=== PATIENT | female | born 1985 | race American Indian/Alaskan Native ===

== ENCOUNTER 2018-03-24 13:05 | Inpatient (IN) | payer BC ==
[2018-03-24] MEDS ORDERED: Lactated Ringer's 1,000 ML IV SCH (13:45)
--- NOTE | 2018-03-24 14:03 | OBHP ---
Datetime: 03/24/2018 14:02 Admit Comment, IP Provider: 32 yo at 40+5 wks in labor. Pt admitted to L_D. GBS negative. FHT reassuring. H_P dictated, "[id number]" (ES) Datetime: 03/24/2018 13:56 IP Adm Impression: Term, intrauterine IP Admit Plan: Admit to unit; Initiate labor protocol Extremities - PN: Normal Abdomen - PN: Normal Lungs - PN: Normal Heart - PN: Normal Neurologic - PN: Normal General - PN: Normal FHR - Baseline A Provider: 130's Membranes, Provider: Naida EGA AdmitDate IP: 40.5 Vital Signs Provider: Reviewed IP Chief Complaint: Uterine contractions NICHD Variability Prov Fetus A: Moderate 6-25bpm NICHD Accel Fetus A IP Provider: [id number] FHR Category Provider Fetus A: Category I NICHD Decel Fetus A IP Provider: None Dilatation, Provider: 5 Effacement, Provider: 100 Station, Provider: -2 Genitourinary Exam: Normal
--- NOTE | 2018-03-24 14:07 | OBADHP ---
Datetime: 03/24/2018 14:02 Admit Comment, IP Provider: 32 yo at 40+5 wks in labor. Pt admitted to L_D. GBS negative. FHT reassuring. H_P dictated, "[id number]" (ES) Extremities - PN: Normal Abdomen - PN: Normal Lungs - PN: Normal Heart - PN: Normal Neurologic - PN: Normal General - PN: Normal FHR - Baseline A Provider: 130's Membranes, Provider: Bulging Vital Signs Provider: Reviewed IP Chief Complaint: Uterine contractions NICHD Variability Prov Fetus A: Moderate 6-25bpm NICHD Accel Fetus A IP Provider: [id number] NICHD Decel Fetus A IP Provider: None Dilatation, Provider: 5 Effacement, Provider: 100 Station, Provider: -2 Genitourinary Exam: Normal IP Adm Impression: Term, intrauterine IP Admit Plan: Admit to unit; Initiate labor protocol Datetime: 03/24/2018 13:56 FHR Category Provider Fetus A: Category I
[2018-03-24 14:15] VITALS: BMI 27.3
[2018-03-24 14:51] LABS: BASO % 0.2 % (0.0-2.0); EOS % 0.6 % (0.0-4.0); HEMOGLOBIN 12.1 g/dL (12.0-16.0); LYMPH # 1.2 K/uL (1.0-4.3); LYMPH % 16.8 % (20.0-40.0); MEAN CELL VOLUME 84.2 fl (81.0-99.0); MEAN CORPUSCULAR HEMOGLOBIN 29.3 pg (27.0-31.0); MEAN CORPUSCULAR HGB CONC 34.8 g/dL (33.0-37.0); MEAN PLATELET VOLUME 8.3 fl (7.2-11.7); MONO # 0.6 K/uL (0.0-0.8); MONO % 8.6 % (0.0-10.0); NEUT # 5.2 K/uL (1.8-7.0); NEUT % 73.8 % (50.0-75.0); NRBC % 0.1 % (0.0-0.0); RBC 4.12 Mil/uL (3.80-5.20); RED CELL DISTRIBUTION WIDTH 13.3 % (11.5-14.5)
[2018-03-24] MEDS: Oxytocin 30 units/LR 500ML 30 U/500 ML BAG IV SCH ×3 (15:45→19:19)
--- NOTE | 2018-03-24 15:48 | HP ---
HISTORY OF PRESENT ILLNESS: This is a 32-year-old G4, P1-0-2-1 at 40 weeks and 5 days with an EDC of 03/19/2018 by 8 weeks' ultrasound who presents with strong contraction that started at 1:00 a.m. Denies leaking of fluid, or vaginal bleeding. She reports that she passed her mucus plug and reports positive movement. The patient received her care with [facility] with Dr. Henriquez. This is complicated by the fact that she has history of possible genital herpes, operated in the past. IMMUNIZATIONS: The patient has received her Tdap vaccine on 01/09/2018. PAST MEDICAL HISTORY: Healthy. PAST SURGICAL HISTORY: None. MEDICATIONS: vitamins. ALLERGIES: NO KNOW DRUG ALLERGIES. GYNECOLOGIC HISTORY: Menarche at 12 and history of regular periods. She does report a history of "possible herpes outbreak" and denies abnormal Pap. SOCIAL HISTORY: The patient denies tobacco, alcohol or illicit drug use. FAMILY HISTORY: The patient reports that her mom has diabetes and hypertension and she has a maternal uncle with lung cancer who is a very heavy smoker. OBSTETRIC HISTORY: In 2001 and 2006, she underwent a D and C for termination of . In 07/2015, she underwent a vaginal delivery of full term female infant weighing 6 pounds 4 ounces. LABORATORY DATA: On 01/24/2015, SMN copy number 2, reduced carrier risk. On 08/07/2017, HIV was nonreactive and varicella zoster virus was positive. On 08/07/2017, blood type is B positive and antibody screen negative. Hemoglobin electrophoresis was within normal limits. Her urine culture was negative. On 08/07/2017, her RPR was nonreactive. Rubella positive and hepatitis B surface antigen negative. On 09/04/2017, Panorama was low-risk female fetus. On 09/04/2017, her Pap was negative. HPV negative. Gonorrhea and Chlamydia negative. On 10/02/2017, her maternal serum AFP was negative. On 01/09/2018, her one-hour Glucola was 109. RPR was nonreactive. Her HIV was nonreactive. On 02/19/2018, her hemoglobin was 11.6. On 02/19/2018, her group B strep was negative. PHYSICAL EXAMINATION: VITAL SIGNS: Afebrile. Vital signs stable. GENERAL: The patient appears uncomfortable during contractions. HEART: Regular rate and rhythm. CHEST AND LUNGS: Clear to auscultation bilaterally. ABDOMEN: Soft, nontender, and gravid. EXTREMITIES: Nontender. VAGINAL: A 5 cm dilated with a bulging bag, 100% effaced and -3 station at 1:45 p.m. External monitoring, baseline is in the 130s with moderate variability and positive accelerations. Contractions are difficult to discern. ASSESSMENT AND PLAN: This is a 32-year-old G4, P1-0-2-1 at 40 weeks and 5 days in labor. The patient to be admitted for labor and delivery. Group B streptococcus negative. heart tracing is reassuring. Santi Roa MD
[2018-03-24] MEDS ORDERED: Benzocaine/Menthol SPRAY TOP PRN (19:46)
[2018-03-24] MEDS ORDERED: Oxycodone/Acetaminophen 5/325 mg Tab PO PRN (19:46)
--- NOTE | 2018-03-24 20:06 | OBDS ---
DELIVERY PERSONNEL Delivery Doctor: Apolinar Roa MD Administrative Associate: Ma. Annita Newman RN MATERNAL INFORMATION Delivery Anesthesia: Local Estimated Blood Loss (ml): 250 Maternal Complications: None Provider Comments: Pt progressed to complete and pushed to deliver a viable female infant through cl ear fluid at 190:13. Apgars 9 and 9. Wt 6#8.6. 2970 gms. Cord blood (Ever cord) collected. Cord b lood collected. Placenta delivered at 19:19. 2% lidoacine infiltrated into vaginal tissue. 1st degr ee vaginal tear repaired w/ interrupted stitches of 3-0 rapide and a running of 2-0 rapide. Left he motastic periurethral abrasion. Rectum intact. Pt and baby tolerated the procedure well. EBL 250mL LABOR SUMMARY EDC: 03/19/2018 00:00 No. Babies in Womb: 1 Attempted: No Labor Anesthesia: None LABOR INFORMATION Onset of Labor: 03/24/2018 01:00 Complete Dilatation: 03/24/2018 19:11 Oxytocin: N/A Group B Beta Strep: Negative Steroids Given: None Reason Steroids Not Administered: Not Applicable MEMBRANES Membranes Rupture Method: Spontaneous Rupture of Membranes: 03/24/2018 15:40 Length of Rupture (hrs): 3.55 Amniotic Fluid Color: Clear Amniotic Fluid Amount: Large Amniotic Fluid Odor: Normal STAGES OF LABOR Stage 1 hrs: 18 Stage 1 min: 11 Stage 2 hrs: 0 Stage 2 min: 2 Stage 3 hrs: 0 Stage 3 min: 6 Total Time in Labor hrs: 18 Total Time in Labor min: 19 VAGINAL DELIVERY Episiotomy: None BABY A INFORMATION Infant Delivery Date/Time: 03/24/2018 19:13 Method of Delivery: Vaginal Born in Route : No : N/A Forceps: N/A Vacuum Extraction: N/A Shoulder Dystocia : No SHOULDER DYSTOCIA BABY A Infant Delivery Date/Time: 03/24/2018 19:13 PRESENTATION/POSITION BABY A Presentation: Cephalic PLACENTA INFORMATION BABY A Placenta Delivery Time : 03/24/2018 19:19 Placenta Method of Delivery: Spontaneous Placenta Status: Delivered SCORES BABY A Heart Rate 1 min: >100 bpm Resp Effort 1 min: Good Cry Reflex Irritability 1 min: Cough or Sneeze or Pulls Away Muscle Tone 1 min: Active Motion Color 1 min: Body [place], Extremities Blue Resuscitation Effort 1 min: Tactile Stimulation SCORE 1 MIN: 9 Heart Rate 5 min: >100 bpm Resp Effort 5 min: Good Cry Reflex Irritability 5 min: Cough or Sneeze or Pulls Away Muscle Tone 5 min: Active Motion Color 5 min: Body [place], Extremities Blue Resuscitation Effort 5 min: N/A SCORE 5 MIN: 9 INFANT INFORMATION BABY A Gestational Age at Delivery: 40.0 Gestational Status: Term Outcome : Liveborn Infant Condition : Stable Sex: Female IDENTIFICATION/MEDS BABY A ID Band Number: [id number] ID Band Location: Left Leg; Left Arm WEIGHT/LENGTH BABY A Birthweight (gms): 2970 Infant Weight (lb): 6 Infant Weight (oz): 9 CORD INFORMATION BABY A No. Cord Vessels: 3 Nuchal Cord : N/A Cord Blood Taken: Yes Infant Suction: Mouth; Nose
[2018-03-25] MEDS ORDERED: Benzocaine/Menthol SPRAY TOP PRN (04:12)
[2018-03-25] MEDS ORDERED: Oxycodone/Acetaminophen 5/325 mg Tab PO PRN (04:12)
[2018-03-25 05:46] LABS: HEMOGLOBIN 10.7 g/dL (12.0-16.0); MEAN CELL VOLUME 84.8 fl (81.0-99.0); MEAN CORPUSCULAR HGB CONC 34.2 g/dL (33.0-37.0); RBC 3.69 Mil/uL (3.80-5.20); RED CELL DISTRIBUTION WIDTH 13.5 % (11.5-14.5); WHITE BLOOD COUNT 10.7 K/uL (4.8-10.8)
[2018-03-26 14:37] VITALS: BP 101/65; PULSE 87; RESP 20
--- NOTE | 2018-03-26 14:55 | OBPPN ---
Datetime: 03/26/2018 14:54 PP Pain Prov: Within normal limits PP Nausea Prov: Denies PP Flatus Prov: Yes PP Breasts Prov: Not Done PP Heart Prov: Normal PP Lungs Prov: Normal PP Abdomen/Uterus Prov: Normal PP Lochia Prov: Not Done PP Vulva/Perineum Prov: Not Done PP CVA Tenderness Prov: Normal PP Extremities Prov: Normal PP C/S Incision Prov: Normal PP Impression Prov: Normal progression PP Plan Prov: Discharge PP Progress Note Prov: Doing well patient cleared for discharge Motrin as needed Follow-up M.D. Datetime: 03/25/2018 21:25 PP BM Prov: Yes PP Progress Prov: Normal Vital Signs Provider PP: Reviewed
--- NOTE | 2018-03-26 14:55 | OBDCSUM ---
Datetime: 03/26/2018 11:55 Discharged to, Provider: Home Follow up at, Provider: Dr. Henriquez Disch Instr Activity: Normal activity; May Shower Disch Instr Diet: Regular Discharge Diagnosis, Provider: Term Delivered Discharge Time: 03/26/2018 12:00 Follow up in weeks, Provider: 4-6 weeks Disch Referrals: None Disch Activity Restrictions: No sexual activity; Nothing in vagina - [place], tampons, douche Discharge Comment, Provider: Doing well cleared for discharge Contraception after Delivery: Undecided
[2018-03-26 19:09] VITALS: TEMP 97.3; O2SAT 100
== END 2018-03-26 14:30 | disposition home or self-care (01) | DRG 774 ==
LOC: H.EROB2 13:05 → H.L&D 14:15 → H.OB/GYN 21:25
PROVIDERS: ADMIT Obstetrics & Gynecology; ATTEND Obstetrics & Gynecology
PROC: 10E0XZZ Delivery of Products of Conception, External Approach (ICD-10-PCS; principal; 2018-03-24)
PROC: 0HQ9XZZ Repair Perineum Skin, External Approach (ICD-10-PCS; 2018-03-24)
PROC: 4A1HXCZ Monitoring of Products of Conception, Cardiac Rate, External Approach (ICD-10-PCS; 2018-03-24)
DX: O98.52 Other viral diseases complicating childbirth (principal); O71.4 Obstetric high vaginal laceration alone; Z37.0 Single live birth; B02.9 Zoster without complications; Z3A.40 40 weeks gestation of pregnancy; Z80.1 Family history of malignant neoplasm of trachea, bronchus and lung; Z82.49 Family history of ischemic heart disease and other diseases of the circulatory system; Z83.3 Family history of diabetes mellitus